=== PATIENT | female | born 1990 | race Caucasian/White ===

== ENCOUNTER 2022-09-24 00:17 | Emergency (ER) | payer BC ==
[~2022-09-24] VITALS: Ht 162.6 cm; Wt 55.0 kg
[2022-09-24] MEDS ORDERED: AMOXICILLIN 500 MG CAPSULE PO ONE (01:45)
[2022-09-24] MEDS ORDERED: HYDROCODONE/ACETAMINOPHEN 5/325MG TABLET PO ONE (02:15)
[2022-09-24] MEDS ORDERED: HYDR-4001 MT (02:51)
[2022-09-24] MEDS ORDERED: AMOX-494 MT (02:51)
[2022-09-24] MEDS ORDERED: HYDROCODONE/ACETAMINOPHEN 5/325MG TABLET PO NR (03:00)
[2022-09-24 03:03] VITALS: BP 130/82
== END 2022-09-24 03:16 | disposition home or self-care (01) ==
LOC: ER 00:17
DX: R22.0 Localized swelling, mass and lump, head (principal); I10 Essential (primary) hypertension; Z98.890 Other specified postprocedural states
CPT/HCPCS: 99283